=== PATIENT | female | born 1955 | race Caucasian/White ===

== ENCOUNTER → 2020-02-23 | Outpatient (CLI) | payer OTHER ==
--- NOTE | 2020-02-23 10:42 | RAD ---
EXAM: LUMBAR SPINE 2 VIEWS. HISTORY: Low back pain. FINDINGS: There are instrumented posterior fusion changes at L4-5. There are laminectomies at L4. A spinal stimulator has its leads at T10-11. There is a mild lumbar levoscoliosis. There is grade 2 anterolisthesis at L4-5. Mild retrolisthesis is suspected at L2-3, though this may be rotational artifact. Vertebral body heights are maintained, and no fractures are identified. Degenerative disc disease is severe from L4 through S1, moderate to severe at L3-4 and moderate at L2-3. IMPRESSION: 1. L3-4 instrumented posterior fusion with L4 laminectomies. 2. Grade 2 anterolisthesis at L4-5. Mild retrolisthesis at L2-3. 3. Degenerative disc disease is severe from L4 through S1 and moderate to severe more superiorly. Electronically signed by: Michaela Barbosa MD (02/23/2020 10:39 AM) [facility]
--- NOTE | 2020-02-23 10:43 | RAD ---
EXAM: LEFT KNEE, 2 VIEWS. HISTORY: Left knee pain. COMPARISON: None. FINDINGS: No fractures are identified. There are moderate osteophytes along the medial compartment. There is minimal medial compartmental joint space narrowing. The lateral compartmental joint space may be slightly narrowed with tiny osteophytes. Small subchondral cysts are suspected along the median ridge of the patella. Alignment is normal. There is a small joint effusion. IMPRESSION: 1. Mild medial compartment predominant osteoarthritis. 2. Small joint effusion. Electronically signed by: Michaela Barbosa MD (02/23/2020 10:40 AM) [facility]
== END ==
LOC: RAD 08:36
PROVIDERS: ATTEND Anesthesiology Pain Medicine
DX: M17.12 Unilateral primary osteoarthritis, left knee (principal); M51.37 Other intervertebral disc degeneration, lumbosacral region; M43.16 Spondylolisthesis, lumbar region; M25.462 Effusion, left knee
CPT/HCPCS: 72100; 73560